=== PATIENT | male | born 1960 | race Caucasian/White ===

== ENCOUNTER 2024-09-27 16:22 | Emergency (ER) | payer OTHER | END 2024-09-27 16:50 | LOC: FB.ED 16:22 | DX: F10.230 Alcohol dependence with withdrawal, uncomplicated (principal); E78.00 Pure hypercholesterolemia, unspecified; I10 Essential (primary) hypertension; Z79.899 Other long term (current) drug therapy; Z87.891 Personal history of nicotine dependence; Y90.9 Presence of alcohol in blood, level not specified | CPT/HCPCS: 99284; A9270 ==